=== PATIENT | male | born 1950 | race Caucasian/White ===

== ENCOUNTER 2018-01-12 09:45 | Inpatient (IN) | payer MEDICARE, OTHER ==
[~2018-01-12] VITALS: Ht 180.3 cm; Wt 76.7 kg
[2018-02-22] MEDS ORDERED: ATORVASTATIN CA40 MG ORAL (10:31)
[2018-02-22] MEDS ORDERED: PROSCAR5 MG ORAL (10:31)
[2018-02-22] MEDS ORDERED: PROCARDIA XL30 MG ORAL (10:31)
[2018-02-22] MEDS ORDERED: CLOPIDOGREL75 MG ORAL (10:31)
[2018-02-22] MEDS ORDERED: CARVEDILOL3.125 MG ORAL (10:31)
[2018-02-22] MEDS ORDERED: HYDRALAZINE HCL25 M1 ORAL (10:31)
[2018-02-22] MEDS ORDERED: KEPPRA500 M4 ORAL (10:31)
[2018-02-22] MEDS ORDERED: TAMSULOSIN HCL0.4 MG ORAL (10:31)
[2018-02-23] VITALS (17 sets, daily range): BP systolic 142–198; BP diastolic 69–101
[2018-02-23] MEDS ORDERED: ceFAZolin sod 1 GM in D5W 110 ML IVPB SCH (07:00)
[2018-02-23] MEDS ORDERED: ceFAZolin sod 1 GM in D5W 110 ML IVPB ONE (07:00)
--- NOTE | 2018-02-23 07:54 | Anethesia Preoperative Eval ---
Anesthesia Pre-op PMH/ROS General Date of Evaluation: February 23, 2018 Time of Evaluation: 07:20 Anesthesiologist: ASA Score: ASA 3 Mallampati Score Class I : Soft palate, uvula, fauces, pillars visible Class II: Soft palate, uvula, fauces visible Class III: Soft palate, base of uvula visible Class IV: Only hard plate visible Mallampati Classification: Class II Surgeon: gareth Diagnosis: enlarged prostate Surgical Procedure: TURP Anesthesia History: none Family History: no anesthesia problems Allergies: Coded Allergies: No Known Allergies (Unverified , 02/23/18) Medications: see eMAR Past Medical History Cardiovascular: Reports: HTN, CAD, DE; Denies: valve dz, arrhythmia, other Pulmonary: Denies: asthma, COPD, ITZ, other Gastrointestinal/Genitourinary: Denies: GERD, CRI, ESRD, other Neurologic/Psychiatric: Reports: CVA; Denies: dementia, depression/anxiety, TIA, other Endocrine: Denies: DM, hypothyroidism, steroids, other HEENT: Denies: cataract (L), cataract (R), glaucoma, COWLITZ (L), COWLITZ (R), other Hematology/Immune: Denies: anemia, DVT, bleeding disorder, other Musculoskeletal/Integumentary: Denies: OA, RA, DJD, DDD, edema, other PSxH Narrative: hernia repair Anesthesia Pre-op Phys. Exam Physician Exam Last Vital Signs Date Time Temp Pulse Resp B/P (MAP) Pulse Ox O2 Delivery O2 Flow Rate FiO2 02/23/18 06:36 98.4 53 18 162/75 99 Room Air 98.4 Constitutional: NAD Cardiovascular: RRR Respiratory: CTA Gastrointestinal: S/NT/ND Airway Exam Mallampati Score: Class II MO: full ROM: full Teeth: missing Dentures: no upper, no lower Anesthesia Pre-op A/P Labs WNL Studies Pre-op Studies: EKG Risk Assessment & Plan Assessment: ASA 3, okay to proceed Plan: ETGA Status Change Before Surgery: No Pre-Antibiotics Drug: cefazolin 1 gram Given Within 1 Hr of Incision: Yes Time Given: 08:25 Rika Leonard M.D. February 23, 2018 07:54
[2018-02-23] MEDS ORDERED: Midazolam 2mg/2ml Inj ONE (08:00)
[2018-02-23] MEDS ORDERED: NS Irrig 1000ml ONE (08:00)
[2018-02-23] MEDS ORDERED: fentaNYL 100 mcg/2 mL IV ONE (08:00)
[2018-02-23] MEDS ORDERED: Glycopyrrolate 0.2mg/ml 1ml Vial ONE ×2 (08:00)
[2018-02-23] MEDS ORDERED: Propofol 200mg/20ml IV ONE (08:00)
[2018-02-23] MEDS ORDERED: Metoclopramide 10mg/2ml Inj ONE (08:00)
[2018-02-23] MEDS ORDERED: LR 1000ml IVPB ONE (08:00)
[2018-02-23] MEDS ORDERED: Lidocaine 1% MPF 10mg/ml 5ml ONE (08:00)
[2018-02-23] MEDS ORDERED: Zemuron 50mg/5ml Inj IV ONE (08:00)
[2018-02-23] MEDS ORDERED: Dexamethasone 4mg/ml vial ONE (08:00)
[2018-02-23] MEDS ORDERED: Sugammadex Sodium 200mg/2ml vial IV ONE (08:00)
[2018-02-23] MEDS ORDERED: LR 1000ml ONE (08:00)
[2018-02-23] MEDS ORDERED: Sterile Water Irrig 1000ml IRRIG ONE (08:00)
[2018-02-23] MEDS ORDERED: Gentamicin 80mg/100ml Premix IVPB ONE (08:00)
[2018-02-23] MEDS ORDERED: NS Irrig 4000ml IRRIG ONE ×2 (08:00→09:35)
--- NOTE | 2018-02-23 08:07 | Pre-Procedure Note/Attestation ---
Pre-Procedure Note/Attestation Complete Prior to Procedure Planned Procedure: not applicable Procedure Narrative: TURP Indications for Procedure Pre-Operative Diagnosis: BPH Attestation I attest that I discussed the nature of the procedure; its benefits; risks and complications; and alternatives (and the risks and benefits of such alternatives ), prior to the procedure, with the patient (or the patient's legal registration representative). I attest that, if there was a reasonable possibility of needing a blood transfusion, the patient (or the patient's legal registration representative) was given the [facility] standardized written summary, pursuant to the Duc Maize Blood Safety Act ([place] Health and Safety Code # 1645, as amended). I attest that I re-evaluated the patient just prior to the surgery and that there has been no change in the patient's H&P, except as documented below: Bony Olivas MD February 23, 2018 08:07
--- NOTE | 2018-02-23 10:34 | Brief Operative Note ---
Immediate Post Operative Note Operative Note Pre-op Diagnosis: BPH Procedure: TURP Urethroplasty Post-op Diagnosis: urethral stricture, BPH Post-op Diagnosis: same as pre-op plus Surgeon: Enoch Olivas Anesthesia: general Specimen: yes Complications: none Condition: stable Fluids: 1000 Estimated Blood Loss: minimal Implant(s) used?: No Bony Olivas MD February 23, 2018 10:34
[2018-02-23] MEDS ORDERED: Tylenol #3 tab (300mg/30mg) ORAL ONE (10:45)
[2018-02-23] MEDS ORDERED: Norco 5mg/325mg tab ORAL PRN (10:45)
[2018-02-23] MEDS: fentaNYL 100 mcg/2 mL IV PRN ×5 (11:17→12:16)
[2018-02-23] MEDS ORDERED: LR 1000ml 1,000 ML IVLG SCH (11:27)
--- NOTE | 2018-02-23 11:27 | Immediate Post-Op Evaluation ---
Immediate Post-Op Evalulation Immediate Post-Op Evalulation Date of Evaluation: February 23, 2018 Time of Evaluation: 10:21 IV Fluids: 1200ml Blood Products: 0 Estimated Blood Loss: 50 Blood Pressure Systolic: 183 Blood Pressure Diastolic: 94 Pulse Rate: 61 Respiratory Rate: 16 O2 Sat by Pulse Oximetry: 100 Temperature (Fahrenheit): 98 Pain Score (1-10): 1 Nausea: No Vomiting: No Complications none Patient Status: awake, extubated, none Hydration Status: adequate Drug: ancef, gentamicin, vancomycin Given Within 1 Hr of Incision: Yes Time Given: 08:25 Rika Leonard M.D. February 23, 2018 11:27
[2018-02-23 13:50] LABS: HEMATOCRIT 35.8 % (42.0-52.0); HEMOGLOBIN 12.8 G/DL (14.2-18.0); MEAN CORPUSCULAR VOLUME 92 FL (80-99); PLATELET COUNT 121 K/UL (150-450); RED BLOOD COUNT 3.91 M/UL (4.70-6.10); RED CELL DISTRIBUTION WIDTH 10.5 % (11.6-14.8); WHITE BLOOD COUNT 8.2 K/UL (4.8-10.8)
[2018-02-23] MEDS ORDERED: ceFAZolin sod 2 GM in D5W 110 ML IV SCH (14:00)
[2018-02-23 14:09] LABS: ANION GAP 7 mmol/L (5-15); BLOOD UREA NITROGEN 21 mg/dL (7-18); CALCIUM 8.2 MG/DL (8.5-10.1); CARBON DIOXIDE 25 MMOL/L (21-32); CHLORIDE 109 MMOL/L (98-107); CREATININE 1.1 MG/DL (0.55-1.30); POTASSIUM 3.9 MMOL/L (3.5-5.1); SODIUM 141 MMOL/L (136-145)
[2018-02-23] MEDS: D5 1/2NS w/KCl 20mEq 1,000 ML IV SCH (14:58)
[2018-02-23] MEDS: ceFAZolin sod 2 GM in D5W 110 ML IV SCH (16:32)
[2018-02-23] MEDS: Docusate 100mg cap ORAL SCH (18:45)
[2018-02-24 00:30] VITALS: BP 136/66
[2018-02-24] MEDS: D5 1/2NS w/KCl 20mEq 1,000 ML IV SCH ×2 (01:22→11:00)
[2018-02-24] MEDS: ceFAZolin sod 2 GM in D5W 110 ML IV SCH (01:22)
[2018-02-24 04:00] VITALS: BP 138/72
[2018-02-24 08:00] VITALS: BP 167/78
[2018-02-24] MEDS: Docusate 100mg cap ORAL SCH (08:23)
[2018-02-24 09:14] LABS: BASOPHILS % (AUTO) 0.5 % (0.0-2.0); EOSINOPHILS % (AUTO) 0.7 % (0.0-3.0); HEMATOCRIT 33.3 % (42.0-52.0); HEMOGLOBIN 11.8 G/DL (14.2-18.0); LYMPHOCYTES % (AUTO) 16.2 % (20.0-45.0); MEAN CORPUSCULAR VOLUME 91 FL (80-99); MONOCYTES % (AUTO) 7.8 % (1.0-10.0); NEUTROPHILS % (AUTO) 74.9 % (45.0-75.0); PLATELET COUNT 117 K/UL (150-450); RED BLOOD COUNT 3.65 M/UL (4.70-6.10); RED CELL DISTRIBUTION WIDTH 10.6 % (11.6-14.8); WHITE BLOOD COUNT 9.4 K/UL (4.8-10.8)
[2018-02-24 09:44] LABS: ANION GAP 6 mmol/L (5-15); BLOOD UREA NITROGEN 17 mg/dL (7-18); CALCIUM 8.3 MG/DL (8.5-10.1); CARBON DIOXIDE 26 MMOL/L (21-32); CHLORIDE 109 MMOL/L (98-107); CREATININE 1.2 MG/DL (0.55-1.30); POTASSIUM 3.7 MMOL/L (3.5-5.1); SODIUM 141 MMOL/L (136-145)
[2018-02-24 10:07] VITALS: BP 176/80
--- NOTE | 2018-02-24 10:55 | 48 Hour Post Anesthesia Eval ---
Post Anesthesia Evaluation Procedure: TUPR Date of Evaluation: February 24, 2018 Time of Evaluation: 10:54 Blood Pressure Systolic: 156 0: 76 Pulse Rate: 68 Respiratory Rate: 20 Temperature (Fahrenheit): 97.9 O2 Sat by Pulse Oximetry: 98 Airway: patent Nausea: No Vomiting: No Pain Intensity: 1 Hydration Status: adequate Cardiopulmonary Status: stable Mental Status/LOC: patient returned to baseline Follow-up Care/Observations: n/a Post-Anesthesia Complications: none Follow-up care needed: N/A Stevie Fernando MD February 24, 2018 10:55
[2018-02-24 13:00] VITALS: BP 221/112
[2018-02-24] MEDS ORDERED: HydrALAZINE 50mg tab ORAL SCH (14:00)
[2018-02-24 14:31] VITALS: BP 176/86
[2018-02-24] MEDS ORDERED: ASPIRIN81 MG ORAL (17:24)
[2018-02-24] MEDS ORDERED: COZAAR50 MG ORAL (17:25)
[2018-02-24] MEDS ORDERED: LEVOFLOXACIN500 MG ORAL (17:26)
[2018-02-24] MEDS ORDERED: NORVASC10 MG ORAL (17:26)
--- NOTE | 2018-02-24 17:45 | History and Physical Report ---
DATE OF ADMISSION: 02/23/2018 HISTORY OF PRESENT ILLNESS: This is a very pleasant, 67-year-old male who is admitted to the hospital for urologic surgery. He underwent successful placement of Anne and prostatic procedure yesterday by Dr. Olivas. He is doing well at this point in time. He is anticipating discharge today. PAST MEDICAL HISTORY: Notable for CAD, status post ND in 2016. He has also had CVA x2 in 2016. He reports history of hypertension, hyperlipidemia and BPH. PAST SURGICAL HISTORY: Previous surgeries include cardiac stents and hernia surgery in the past. SOCIAL HISTORY: He has been a smoker in the past. MEDICATIONS: Home medications include hydralazine, losartan, minoxidil, Coreg, clonidine, aspirin, and Norvasc. He has also been on Keppra and Flomax. ALLERGIES: None reported. REVIEW OF SYSTEMS: Denies any headaches, hematemesis, melena, or hematochezia. PHYSICAL EXAMINATION: GENERAL: Reveals a 67-year-old male. HEENT: Unremarkable. LUNGS: Clear breath sounds. ABDOMEN: Soft. EXTREMITIES: There is no edema. NEUROLOGIC: Nonfocal. IMPRESSION: 1. History of coronary artery disease. 2. History of cerebrovascular accident. 3. Hypertension. 4. Prostatic hypertrophy. 5. Seizure disorder. DISCUSSION: The patient may be discharged home. I will review his medications and allow him to be discharged on aspirin, Plavix, Coreg, hydralazine, losartan, Flomax, finasteride, Lipitor, Keppra and Norvasc. We will arrange outpatient followup in the next 24 hours. A Anne bag . Brannon Rodriguez M.D. DR: PHOEBE JOB#: [id number] CC:
--- NOTE | 2018-02-25 06:45 | Operative Note - Dictated ---
DATE OF OPERATION: 02/23/2018 NOTE: POOR AUDIO PREOPERATIVE DIAGNOSIS: Urinary retention with recurrent urinary tract infections. POSTOPERATIVE DIAGNOSIS: Urinary retention with recurrent urinary tract infections. OPERATION: Transurethral resection of the prostate, distal resection of the stricture with urethroplasty. TELEGRAPH REPEATER INSTALLER: Bony Olivas M.D. ANESTHESIA: General. FINDINGS: Severe undilatable urethral stricture in the bulbar urethra, BPH. INDICATION FOR SURGERY: The patient had multiple episodes of severe UTIs with hospitalization with IV antibiotics and a severe stricture and BPH. Treatment options were explained in great length including all potential complications. He signed a consent for TURP. DESCRIPTION OF SURGERY: He was brought to the operating room, placed in lithotomy position, prepped and draped in standard fashion. Under general anesthesia, a cystoscope was introduced into the urethra and carried down towards the bulbar urethra until we encountered very, very tight urethral stricture. Attempt to dilate unsuccessful very dense urethral stricture. Decision was made to make a small perineal incision. While the perineum was and urethra was mobilized. There was a very tight urethral stricture, which was opened. The urethra was mobilized a very tight completely scarred down urethral strictures was excised approximately 2 cm with great opening on both sides proximally and distally. A 24-Scottish Anne was placed and urethra was reapproximated over this catheter with interrupted 4-0 Vicryl sutures. The Anne was removed. Resectoscope was introduced and transurethral vaporization of the prostate was completely accomplished. After that, 20-Scottish Anne catheter was reintroduced into the urethra and left indwelling. No evidence of severe bleeding. Wound was closed in 3 layers, subcuticular closure for the skin. Bony Olivas M.D. DR: TARYN JOB#: [id number] CC:
--- NOTE | 2018-02-25 13:04 | Discharge Summary ---
Discharge Summary Discharge Summary Discharge Summary DATE OF ADMISSION: 02/23/2018 DATE OF DISCHARGE: 02/24/2018 CONSULTANTS: Dr. Bony Olivas BRIEF HOSPITAL COURSE: Patient is a pleasant 67-year-old male with history of hypertension, hyperlipidemia, coronary artery disease status post PA, CVA with BPH and urethral stricture. Was admitted and underwent TURP with distal resection of the stricture with urethroplasty. He tolerated procedure well and postoperatively was admitted for postoperative care. He was given pain management. He underwent OT evaluation. Vitals were monitored. Blood pressure was elevated. He was given hydralazine. Blood pressure went down. He was given instructions on how to empty Anne leg bag. He was eventually discharged home with home health. FINAL DIAGNOSES: BPH Urethral stricture Status post TURP with urethroplasty Hypertension Seizure disorder Coronary artery disease Old CVA DISPOSITION: Patient was discharged home. DISCHARGE MEDICATIONS: Refer to Discharge Medication List. DISCHARGE INSTRUCTIONS: Follow up with PCP in a week. I have been assigned to dictate discharge summary on this account, and I was not involved in the patient's management. Bibi Martines NP February 25, 2018 13:04
== END 2018-02-24 14:43 | disposition home or self-care (01) | DRG 714 ==
LOC: SDSOVERFLO 02-23 05:38 → 3E 02-23 13:03
DX: N40.1 Benign prostatic hyperplasia with lower urinary tract symptoms (principal); R33.8 Other retention of urine; N35.8 Other urethral stricture; I25.2 Old myocardial infarction; I10 Essential (primary) hypertension; E78.5 Hyperlipidemia, unspecified; I25.10 Atherosclerotic heart disease of native coronary artery without angina pectoris; Z95.5 Presence of coronary angioplasty implant and graft; Z87.891 Personal history of nicotine dependence; Z87.440 Personal history of urinary (tract) infections; Z86.73 Personal history of transient ischemic attack (TIA), and cerebral infarction without residual deficits; Z79.02 Long term (current) use of antithrombotics/antiplatelets; G40.909 Epilepsy, unspecified, not intractable, without status epilepticus
CPT/HCPCS: 36415; 80048; 85007; 85025; 86850; 86900; 86901; 87081; J1580; J2250; J2405; J2765